=== PATIENT | female | born 1960 | race Two or more races ===

== ENCOUNTER 2025-09-10 09:50 | Outpatient (AMB) | payer OTHER, SELFPAY ==
--- NOTE | 2025-09-10 09:54 | A.PHYSOV ---
Intake Visit Reasons: NPV- acute left sided LBP w/sciatica Intake Note: Patient is a 64 year old female here today for a new patient visit. Patient presents with left sided lower back pain which is radiating down her left leg. Patient recalls no injury. Life Science Taxonomist Required: No Life Science Taxonomist Services: Life Science Taxonomist Offered & Declined Life Science Taxonomist Name: Dilip mahoney to interpret Allergies No Known Allergies Allergy (Verified 09/10/25 09:57) HPI Comments Details: History of Present Illness The patient is a 64-year-old female presenting with back pain. Her symptoms began on August 20 without a specific injury and have been diagnosed as possible sciatica. She reports a burning sensation in the buttock, consistent with nerve pain. For treatment, she has used Voltaren gel and has taken prednisone, which provided some relief. She was also taking naproxen but has run out of the prednisone. An x-ray of her back was performed, which showed arthritis and disc issues. The patient has a history of a thyroid condition for which she takes medication. She has not yet started physical therapy or seen a chiropractor but has an appointment scheduled. I reviewed the referring provider's no prior to consultation. Pain Description - Onset: The pain began on August 20. - Location: The pain is primarily in her back. - Quality: She experiences a burning sensation in the buttock. - Exacerbating Factors: Pain is worsened by bending forward and straightening the left leg. - Associated Signs: She has tenderness to touch on one side of her back. [facility] Surgical History (Updated 09/10/25 @ 09:58 by Cesilia Lang MA) H/O: hysterectomy History of cholecystectomy Social History (Updated 09/08/25 @ 15:46 by Cesilia Lang MA) Alcohol intake: current Alcohol intake frequency: does not drink Patient Tobacco Use Status: Never used Tobacco Use of substances other than those prescribed or required for medical reasons: No Review of Systems Narrative Review of Systems - Musculoskeletal: Reports back pain. - Neurological: Reports a burning sensation in the buttock. - Psychiatric: Denies claustrophobia. Physical Exam Exam Exam: Physical Exam Lumbar Spine: Examination of the lumbar spine, there is no visible swelling or deformity. She is tender to left lower lumbar facets. She is otherwise nontender. Full range of motion of the lumbar spine. She does have an increase in pain with facet loading. Special Tests: Lhermittes sign was negative Heel Toe walk is normal Left straight leg raise: Positive left Right straight leg raise: Negative Special tests Mac test is negative Ganslen's test is negative SI Joint compression test negative Henna test negative Piriformis stretch is negative Lower Extremities: Full range of motion bilateral lower extremities. No calf pain or edema. Neuro: Sensation: Intact to lower extremities bilaterally Strength L2 (Psoas): 5/5 on the left and 5/5 on the right. L3 (Quads): 5/5 on the left and 5/5 on the right. L4 (Ant tibialis): 5/5 on the left and 5/5 on the right. L5 (EHL) 5/5 on the left and 5/5 on the right. S1 (Gastroc): 5/5 on the left and 5/5 on the right. DTR L4: (Patellar) Left 2 Right 2 S1: (Achilles) Left 1 Right 1 Babinski Downgoing No pathologic clonus. No involuntary movement. Assessment & Plan Assessment & Plan (1) Lumbar radiculopathy: Code(s): M54.16 - Radiculopathy, lumbar region Category: Medical (2) Lumbar spondylosis: Code(s): M47.816 - Spondylosis without myelopathy or radiculopathy, lumbar region Category: Medical Plan Pain Management - Affect: The patient is frustrated by her pain. - Analgesia: She has used Voltaren gel, naproxen, and prednisone, with the prednisone providing some relief. - Activities of Daily Living: The pain has been hard for her, and she does not feel ready to return to her job, which requires constant movement. - Aberrant Drug-Related Behaviors: No aberrant drug-related behaviors were noted. Plan Patient was informed and verbally consented to the use of an ambient scribe for clinic note documentation during this visit. 1. Low Back Pain With Sciatica The patient's symptoms of back pain with a burning sensation in the buttock, along with a positive straight leg raise test, are highly suggestive of sciatica. An x-ray showed arthritis and disc issues, but an MRI is necessary to visualize the nerves and discs to confirm the diagnosis. An MRI of the lumbar spine will be ordered, though it was explained that insurance is likely to deny it without a trial of physical therapy. Prescribed gabapentin for nerve pain, starting at 100 mg three times daily, with instructions to titrate up to two or three pills per dose as tolerated for symptom control. She may continue using naproxen or Tylenol for analgesia. It was strongly recommended that she begin physical therapy for four to six weeks, as this will be required for MRI approval if the initial request is denied. Discussed FMLA paperwork and will extend her leave for a sufficient duration to cover the diagnostic and treatment process, including physical therapy, MRI, and potential future injections. Discussion Notes I discussed with the patient and her that her symptoms are consistent with nerve pain, likely sciatica. I explained that while her x-ray shows arthritis, an MRI is the definitive test to visualize the nerves and discs. I advised that insurance companies typically require 4-6 weeks of physical therapy before approving an MRI, and that her request would likely be denied without it. Despite this, they wished to proceed with ordering the MRI, and I agreed to order it. I recommended she start physical therapy regardless, as it will be necessary if the MRI is denied. I prescribed gabapentin for nerve pain, starting at 100 mg three times daily, and explained she can increase the dose to 2-3 pills per dose as needed, watching for sleepiness. We also discussed her work status and FMLA, and I explained my rationale for completing the paperwork for a longer duration (2-3 months) to cover the entire process of therapy, imaging, and potential injections, with the mutual goal of getting her back to work as soon as she is able. I confirmed she has no contraindications to an MRI, such as claustrophobia or irremovable metal. Patient Instructions - I have ordered an MRI of your back. - The imaging center will contact you if it is approved by your insurance. - It is very important that you start physical therapy. - If the MRI is not approved, you will need to do 4-6 weeks of therapy to get it approved. - I have prescribed gabapentin for your nerve pain. - Start with one 100 mg pill three times a day. - If this does not make you too sleepy, you can increase the dose to two or three pills at a time for better pain control. - You may continue to take naproxen or Tylenol as needed for pain. - We will fill out [facility] paperwork if you do not feel ready to return to work. - Our goal is to get you back to work as soon as you feel better. Orders: Orders MR lumbar spine wo con Today M51.16 - Intervertebral disc disorders with radiculopathy, lumbar region Medications: New gabapentin 100 mg PO TID 90 caps 0RF Coding Level of Care Code Tele New Pt Level 4 (22828) Diagnoses Lumbar radiculopathy M54.16 Lumbar spondylosis M47.816
== END 2025-09-10 10:27 | disposition home or self-care (01) ==
LOC: HO.HPHYS 09:50
PROVIDERS: PCP Family Medicine; Visit Provider Physician Assistant
DX: M54.16 Radiculopathy, lumbar region (principal); M47.816 Spondylosis without myelopathy or radiculopathy, lumbar region
CPT/HCPCS: 99204